=== PATIENT | female | born 1940 | race Two or more races ===

== ENCOUNTER 2021-04-02 09:17 | Day surgery (SDC) | payer OTHER ==
[~2021-04-02 09:17] MED LIST: ACID REDUCER20 M1 PO; BREO ELLIPTA 21 EACH IH; GABAP PO; HYZAAR 100-12.1 EACH PO; LEVOTHYROXINE25 MCG PO; PROAIR IH; VERELAN180 MG PO
== END 2021-04-02 22:00 | disposition home or self-care (01) ==
LOC: CIR.AMB 09:17
PROVIDERS: ATTEND Specialist
DX: N85.01 Benign endometrial hyperplasia (principal); Z20.822 Contact with and (suspected) exposure to COVID-19